=== PATIENT | male | born 2000 | race Caucasian/White ===

== ENCOUNTER 2022-11-14 17:00 | Inpatient (IN) | payer OTHER ==
[2022-11-28] MEDS ORDERED: Midazolam HCl 2 mg/2 ml Vial ONE (06:54)
[2022-11-28] MEDS ORDERED: fentaNYL PF 100 MCG/2 ML SYRINGE ONE ×2 (06:55→09:47)
[2022-11-28] MEDS ORDERED: cefOXitin 2 GM VIAL ONE (07:29)
[2022-11-28] MEDS ORDERED: Sodium Chloride 0.9% 100 ML ONE (07:29)
[2022-11-28] MEDS ORDERED: Dexamethasone 20 MG/5 ML VIAL ONE (07:45)
[2022-11-28] MEDS ORDERED: ePHEDrine Sulfate 50 MG/10 ML VIAL ONE (07:45)
[2022-11-28] MEDS ORDERED: Rocuronium Bromide 10 MG/ML (10ML VIAL) ONE (07:45)
[2022-11-28] MEDS ORDERED: PROPOFOL 200 MG/20 ML VIAL ONE (07:45)
[2022-11-28] MEDS ORDERED: PHENYLEPHRINE-NS 100 MCG/ML 10 ML SYRINGE ONE (07:45)
[2022-11-28] MEDS ORDERED: Lidocaine 1% PF 5 ML VIAL ONE (07:45)
[2022-11-28] MEDS ORDERED: Ondansetron PF 4 MG/2 ML Vial ONE (07:45)
[2022-11-28] MEDS ORDERED: Bupivacaine/Epinephrine 0.25% 30 ML VIAL ONE (08:19)
[2022-11-28] MEDS ORDERED: SUGAMMADEX SODIUM 200 MG/2 ML VIAL ONE (09:00)
[2022-11-28] MEDS ORDERED: Promethazine HCl 25 MG/ML VIAL IM PRN (09:57)
[2022-11-28] MEDS ORDERED: Ondansetron PF 4 MG/2 ML Vial IVP PRN (09:57)
[2022-11-28] MEDS ORDERED: hydrALAZINE 20 MG/ML VIAL SLOW IVP PRN (09:57)
[2022-11-28] MEDS ORDERED: Ipratropium/Albuterol 3 ML NEB NEB PRN (09:57)
[2022-11-28] MEDS ORDERED: fentaNYL 50 mcg/mL 1 mL Vial ONE ×4 (10:21→12:24)
[2022-11-28] MEDS ORDERED: Morphine Sulfate 100 MG in Dextrose 5% in Water 98 ML IV SCH (12:00)
[2022-11-28] MEDS ORDERED: diphenhydrAMINE 50 MG/ML VIAL IM/IV PRN (12:00)
[2022-11-28] MEDS ORDERED: Ketorolac Tromethamine 30 MG/ML VIAL IVP SCH ×2 (12:00)
[2022-11-28] MEDS ORDERED: diphenhydrAMINE 25 MG CAP PO PRN (12:00)
[2022-11-28] MEDS ORDERED: Naloxone HCl 0.4 mg/ml Vial IV PRN (12:00)
[2022-11-28 13:44] VITALS: BMI 32.6
[2022-11-28] MEDS: Sodium Chloride 0.9% 1,000 ML IV SCH ×3 (14:27→23:14)
[2022-11-28] MEDS: cefOXitin 2 GM in Sodium Chloride 0.9% 100 ML IVPB SCH (16:45)
[2022-11-28] MEDS: Ketorolac Tromethamine 30 MG/ML VIAL IVP SCH (21:37)
[2022-11-28] MEDS: Famotidine/PF 20 mg/2ml Vial SLOW IVP SCH (21:37)
[2022-11-28] MEDS: Famotidine 20 MG TAB PO SCH (21:38)
[2022-11-29] MEDS: cefOXitin 2 GM in Sodium Chloride 0.9% 100 ML IVPB SCH (00:23)
[2022-11-29] MEDS: Ketorolac Tromethamine 30 MG/ML VIAL IVP SCH ×4 (04:26→21:32)
[2022-11-29 06:14] LABS: #Lymphocytes 1.9 thou/uL (1.20-3.40); #Monocytes 0.9 thou/uL (0.11-0.59); #Neutrophils 8.7 thou/uL (1.40-6.50); %Basophils 0.1 % (0.0-1.0); %Eosinophils 0.1 % (0.0-10.0); %Lymphocytes 16.7 % (21.0-51.0); %Monocytes 7.5 % (0.0-10.0); %Neutrophils 75.6 % (42.0-75.0); Hemoglobin 13.1 g/dL (14.0-18.0); Mean Corpuscular Hemoglobin 30.8 pg (27.0-31.0); Mean Platelet Volume 7.4 fL (7.4-10.4); Platelet Count 235 10x3/uL (130-400); RBC Distribution Width 12.2 % (11.5-14.5); Red Blood Cell (RBC) Count 4.26 mill/uL (4.70-6.10); White Blood Cell (WBC) Count 11.6 10x3/uL (4.8-10.8)
[2022-11-29 06:36] LABS: Anion Gap 13 mmol/L (10-20); BUN (Urea Nitrogen) 9 mg/dL (8.9-20.6); Calc. Creatinine Clearance 214 mL/min (70-130); Calcium 8.9 mg/dL (7.8-10.44); Carbon Dioxide 22 mmol/L (22-29); Chloride 109 mmol/L (98-107); Estimated GFR 127; Glucose 105 mg/dL (70-105); Potassium 4.1 mmol/L (3.5-5.1); Sodium 140 mmol/L (136-145)
[2022-11-29] MEDS: Famotidine/PF 20 mg/2ml Vial SLOW IVP SCH ×2 (09:04→21:33)
[2022-11-29] MEDS: Famotidine 20 MG TAB PO SCH ×2 (09:04→21:32)
[2022-11-29] MEDS: Sodium Chloride 0.9% 1,000 ML IV SCH ×2 (15:51→21:31)
[2022-11-30] MEDS: Ketorolac Tromethamine 30 MG/ML VIAL IVP SCH ×2 (03:29→09:29)
[2022-11-30] MEDS: Sodium Chloride 0.9% 1,000 ML IV SCH ×3 (05:44→19:58)
[2022-11-30] MEDS ORDERED: HYDROcodone/Acetaminophen 7.5/325 mg Tablet PO PRN ×2 (07:36)
[2022-11-30] MEDS: Famotidine/PF 20 mg/2ml Vial SLOW IVP SCH ×2 (09:26→19:58)
[2022-11-30] MEDS: Famotidine 20 MG TAB PO SCH ×2 (09:30→19:57)
[2022-12-01] MEDS: Sodium Chloride 0.9% 1,000 ML IV SCH ×2 (04:25→14:26)
[2022-12-01 08:46] VITALS: BP 112/70; TEMP 98.2
[2022-12-01] MEDS: Famotidine/PF 20 mg/2ml Vial SLOW IVP SCH (08:54)
[2022-12-01] MEDS: Famotidine 20 MG TAB PO SCH (08:55)
== END 2022-12-01 16:40 | disposition home or self-care (01) | DRG 331 ==
LOC: SURG A 11-28 05:58
PROVIDERS: ADMIT Surgery; ATTEND Surgery
PROC: 0DBN0ZZ Excision of Sigmoid Colon, Open Approach (ICD-10-PCS; principal; 2022-11-28)
DX: K57.20 Diverticulitis of large intestine with perforation and abscess without bleeding (principal); J45.909 Unspecified asthma, uncomplicated; Z90.09 Acquired absence of other part of head and neck; Z79.899 Other long term (current) drug therapy
CPT/HCPCS: 36415; 36416; 80048; 85025; 88307; A4649; J0694; J1100; J1650; J1885; J2250; J2405; J2704; J3010; J3490; J7050; S0028

== ENCOUNTER 2022-11-15 09:38 | Outpatient (CLI) | payer OTHER ==
[2022-11-15 11:18] LABS: #Basophils 0.1 10x3/uL (0.0-0.2); #Eosinphils 0.2 10x3/uL (0.0-0.5); #Monocytes 0.5 10x3/uL (0.0-1.1); #Neutrophils 3.8 10x3/uL (1.5-8.4); %Basophils 0.7 % (0.0-2.0); %Lymphocytes 41.1 % (18.0-47.0); %Monocytes 6.1 % (0.0-10.0); %Neutrophils 49.4 % (40.0-75.0); Hemoglobin 15.3 g/dL (13.5-17.5); Mean Corpuscular HGB CONC 34.5 g/dL (32.0-36.0); Mean Corpuscular Hemoglobin 28.8 pg (27.0-33.0); Mean Corpuscular Volume 83.6 fl (81.2-95.1); Mean Platelet Volume 9.7 fl (7.4-10.4); Platelet Count 292 10x3/uL (150-450); RBC Distribution Width 12.7 % (11.5-14.5); Red Blood Cell (RBC) Count 5.31 10x6/uL (4.32-5.72); White Blood Cell (WBC) Count 7.7 10x3/uL (3.5-10.5)
[2022-11-15 11:33] LABS: ALT (SGPT) 66 U/L (8-55); AST (SGOT) 30 U/L (5-34); Albumin 4.9 g/dL (3.5-5.0); Alkaline Phosphatase 55 U/L (40-110); Anion Gap 16 mmol/L (10-20); BUN (Urea Nitrogen) 9 mg/dL (8.9-20.6); Bilirubin, Total 0.4 mg/dL (0.2-1.2); Calc. Creatinine Clearance 0 mL/min (70-130); Calcium 9.8 mg/dL (7.8-10.44); Carbon Dioxide 23 mmol/L (22-29); Chloride 102 mmol/L (98-107); Estimated GFR 126; Globulin 2.4 g/dL (2.4-3.5); Glucose 91 mg/dL (70-105); Potassium 4.3 mmol/L (3.5-5.1); Protein, Total 7.3 g/dL (6.0-8.3); Sodium 137 mmol/L (136-145)
[2022-11-15 16:02] LABS: Hemoglobin A1c 5.1 % (4.0-6.0)
== END 2022-11-15 09:39 | disposition home or self-care (01) ==
LOC: LABBT 09:38
PROVIDERS: ATTEND Surgery
DX: Z01.812 Encounter for preprocedural laboratory examination (principal); K57.80 Diverticulitis of intestine, part unspecified, with perforation and abscess without bleeding
CPT/HCPCS: 80053; 83036; 85025